=== PATIENT | male | born 1985 | race Caucasian/White ===

== ENCOUNTER 2018-08-12 10:56 | Outpatient (CLI) | payer BC ==
--- NOTE | 2018-08-12 12:17 | RAD ---
2 VIEW CHEST: Date: 08/12/18 No prior comparison. INDICATION: Chest wall pain. FINDINGS: The lungs are clear. There is no consolidation, effusion, or pneumothorax. Cardiac silhouette is norm al in size. Osseous structures are intact. IMPRESSION: No focal consolidation. POS: [facility]
== END 2018-08-12 10:57 | disposition home or self-care (01) ==
LOC: BICRAD 10:56
PROVIDERS: ATTEND Family Medicine
DX: R07.1 Chest pain on breathing (principal); Z00.00 Encounter for general adult medical examination without abnormal findings
CPT/HCPCS: 36415; 71046; 80053; 80061; 81001; 84443; 85025